=== PATIENT | female | born 1980 | race African-American/Black ===

== ENCOUNTER 2017-05-09 19:57 | Emergency (ER) | payer BC ==
[~2017-05-09] VITALS: Ht 175.3 cm; Wt 77.5 kg
[2017-05-09 21:14] LABS: MCH 22.1 PG (29.0-34.0); MCHC 30.9 G/DL (30.0-36.0); MCV 71.6 FL (83-99); RBC DIS.WIDTH-CV 21.2 % (11.8-14.6); RBC DIS.WIDTH-SD 53.4 % (39-53); RED BLOOD COUNT 4.89 M/uL (3.80-5.20)
[2017-05-09 21:15] LABS: CHLORIDE 102 mEq/L (99-109); PLATELET COUNT 147 K/uL (156-360); POTASSIUM 3.1 mEq/L (3.7-5.4); SODIUM 142 mEq/L (136-147)
[2017-05-09 21:16] LABS: GLUCOSE 99 mg/dL (70-99)
[2017-05-09 21:18] LABS: ANION GAP 14 MEQ/L (2-14)
[2017-05-09 21:20] LABS: GFR ESTIMATE (CALCULATED) > 59 mL/min/
[2017-05-09 21:21] LABS: UREA NITROGEN (BUN) 20 mg/dL (9-23)
[2017-05-09 21:52] LABS: QUANTITATIVE HCG < 4.0 MIU/ML
[2017-05-09 21:53] LABS: ADD MIUA? YES; BILIRUBIN NEGATIVE; BLOOD NEGATIVE; COLOR YELLOW ((YELLOW)); GLUCOSE (STRIP) NEGATIVE; KETONES 5; LEUKOCYTES NEGATIVE; NITRITE NEGATIVE; PROTEIN (STRIP) 30; SPECIFIC GRAVITY 1.023 (1.000-1.030)
[2017-05-09 22:04] LABS: BACTERIA RARE /HPF; EPITHELIAL CELLS 1+ /HPF; MUCUS 4+ /LPF; RED BLOOD CELLS 0-5 /HPF (0-5); WHITE BLOOD CELLS 0-5 /HPF (0-5)
[2017-05-09] MEDS ORDERED: ZOFRAN ODT4 MG PO (22:29)
[2017-05-09] MEDS ORDERED: ANTIVERT25 MG PO (22:29)
[2017-05-09] MEDS ORDERED: BENTYL20 MG PO (22:29)
[2017-05-09 22:50] VITALS: BP 137/88
== END 2017-05-09 22:52 | disposition home or self-care (01) ==
LOC: EME 19:57
PROVIDERS: Physician Assistant
DX: I95.1 Orthostatic hypotension (principal); R10.9 Unspecified abdominal pain; R11.2 Nausea with vomiting, unspecified; R03.0 Elevated blood-pressure reading, without diagnosis of hypertension
CPT/HCPCS: 71020; 80048; 81003; 84702; 85027; 93005; 99281; 99284